=== PATIENT | male | born 1970 ===

== ENCOUNTER 2023-06-11 16:14 | Emergency (ER) | payer SELFPAY ==
[~2023-06-11] VITALS: Ht 180.3 cm; Wt 81.8 kg
[2023-06-11 16:19] VITALS: BP 122/75; PULSE 95; RESP 18; TEMP 98.7
[2023-06-11] MEDS ORDERED: PERTUSS(ACELL),DIPH,TET VAC/PF 0.5 ML SYRINGE IM. ONE (16:45)
== END 2023-06-11 19:12 | disposition left against medical advice (07) ==
LOC: EMS 16:14
DX: M79.671 Pain in right foot (principal); Z53.21 Procedure and treatment not carried out due to patient leaving prior to being seen by health care provider
CPT/HCPCS: 99281; Z7502